=== PATIENT | male | born 1965 | race Hispanic/Latino ===

== ENCOUNTER 2016-10-12 18:24 | Emergency (ER) | payer SELFPAY ==
[2016-10-12] MEDS ORDERED: Sodium Chloride 0.9% 1,000 ML IV ONE (19:09)
[2016-10-12 19:34] LABS: BASO % 0.2 % (0.0-2.0); EOS # 0.2 K/uL (0.0-0.7); EOS % 1.4 % (0.0-4.0); HEMATOCRIT 48.8 % (35.0-51.0); LYMPH # 4.2 K/uL (1.0-4.3); LYMPH % 26.3 % (20.0-40.0); MEAN CELL VOLUME 96.5 fL (80.0-94.0); MEAN CORPUSCULAR HEMOGLOBIN 32.2 pg (27.0-31.0); MEAN CORPUSCULAR HGB CONC 33.4 g/dL (33.0-37.0); MEAN PLATELET VOLUME 8.2 fL (7.2-11.7); MONO # 1.3 K/uL (0.0-0.8); MONO % 8.3 % (0.0-10.0); RED CELL DISTRIBUTION WIDTH 13.6 % (11.5-14.5); WHITE BLOOD COUNT 15.9 K/uL (4.8-10.8)
[2016-10-12 19:45] LABS: CHLORIDE 96 mmol/L (98-107)
[2016-10-12 19:46] LABS: POTASSIUM 3.4 mmol/L (3.6-5.2); SODIUM 140 mmol/L (132-148)
[2016-10-12 19:48] LABS: ALB/GLOB RATIO 1.3 (1.0-2.1); AST/SGOT 31 U/L (17-59); BILIRUBIN,TOTAL 0.3 mg/dL (0.2-1.3); CARBON DIOXIDE 29 mmol/L (22-30); GFR AFRICAN-AMERICAN > 60; TOTAL PROTEIN 8.1 g/dL (6.3-8.3)
[2016-10-12 19:49] LABS: ALCOHOL SERUM < 10 mg/dl (0-10); ALKALINE PHOSPHATASE 102 U/L (38-126); ALT/SGPT 40 U/L (21-72); BLOOD UREA NITROGEN 13 mg/dL (9-20); CALCIUM 9.1 mg/dl (8.6-10.4); GLUCOSE,RANDOM 180 mg/dL (75-110)
[2016-10-12 20:37] LABS: RBC URINE 1 /hpf (0-3); URINE BILIRUBIN NEGATIVE (NEGATIVE); URINE BLOOD NEGATIVE (NEGATIVE); URINE COLOR Yellow (YELLOW); URINE GLUCOSE (UA) NORMAL (Normal); URINE HYALINE CAST 0-2 /lpf (0-2); URINE KETONE NEGATIVE (NEGATIVE); URINE LEUKOCYTE ESTERASE NEG Leu/uL (Negative); URINE PROTEIN NEGATIVE (NEGATIVE); URINE UROBILINOGEN NORMAL mg/dL (0.2-1.0); WBC URINE 2 /hpf (0-5)
--- NOTE | 2016-10-12 20:40 | C.PDOC ---
History Of Present Illness 50 y/o male presents to the ED s/p seizure. Pt was standing in his kitchen, his roommate came in and started talk to him and patient wasn't responding, began shaking, sweating, drooling with urinary incontinence. EMS was called. Pt arrived to ED in postictal state, confused and groggy. Pt admits to drinking today; pt admits to drinking and using drugs "occasionally." Time Seen by Provider: 10/12/16 19:00 Chief Complaint (Nursing): Seizure History Per: Patient History/Exam Limitations: no limitations Number Of Seizures: One Associated Symptoms: Incontinence Of Urine Post-ictal Period: Yes Severity: Mild Recent travel outside of the [place]: No Past Medical History Reviewed: Historical Data, Nursing Documentation, Vital Signs Vital Signs: Last Vital Signs Temp 98.1 F 10/12/16 20:57 Pulse 90 10/12/16 21:27 Resp 18 10/12/16 21:27 BP 135/90 10/12/16 21:27 Pulse Ox 94 L 10/12/16 21:27 - Medical History PMH: HTN, Chronic Pain Family History: States: Unknown Family Hx - Social History Hx Alcohol Use: Yes Hx Substance Use: Yes Review Of Systems Except As Marked, All Systems Reviewed And Found Negative. Genitourinary: Positive for: Incontinence (urinary) Neurological: Positive for: Confusion, Seizures Physical Exam - Physical Exam Appears: Non-toxic, No Acute Distress Skin: Warm, Dry, No Rash Head: Atraumatic, Normacephalic Nose: Normal Oral Mucosa: Moist Tongue: Normal Appearing, No Bite Lips: Normal Appearing Throat: Normal Neck: Normal ROM, Supple Chest: Symmetrical Cardiovascular: Rhythm Regular Respiratory: Normal Breath Sounds, No Rales, No Rhonchi, No Wheezing Gastrointestinal/Abdominal: Soft Extremity: Normal ROM Extremity: Bilateral: Atraumatic Neurological/Psych: Oriented x3, Normal Speech, Normal Cognition, Normal Motor, Normal Sensation ED Course And Treatment - Laboratory Results Result Diagrams: 10/12/16 19:29 10/12/16 19:29 Lab Interpretation: Abnormal Interpretation Of Abnormal: WBC elevated. ETOH negative, UDS + opiates, cocaine and marijuana. O2 Sat by Pulse Oximetry: 100 ()2) Pulse Ox Interpretation: Normal Progress Note: Plan: EKG, UDS, IV fluids, BGL. 9:40 Patient eloped from ED. Disposition - Disposition Disposition: ELOPEMENT - ER ONLY Disposition Time: 22:02 Condition: STABLE - Clinical Impression Clinical Impression: Seizure, Polysubstance abuse - Scribe Statement The provider has reviewed the documentation as recorded by the Scribadonis Colon Provider Attestation: All medical record entries made by the Scribe were at my direction and personally dictated by me. I have reviewed the chart and agree that the record accurately reflects my personal performance of the history, physical exam, medical decision making, and the department course for this patient. I have also personally directed, reviewed, and agree with the discharge instructions and disposition.
[2016-10-12 20:59] VITALS: TEMP 98.1
[2016-10-12 21:28] VITALS: BP 135/90; PULSE 90; RESP 18
[2016-10-12 22:03] VITALS: O2SAT 100
--- NOTE | 2016-10-13 16:05 | CARD ---
APPROVED REPORT EKG Measurement Heart [id number] <Conclusion> Poor data quality, interpretation may be adversely affected Sinus tachycardia Left axis deviation Abnormal ECG
== END 2016-10-12 21:34 | disposition left against medical advice (07) ==
LOC: C.ER 18:24
DX: R56.9 Unspecified convulsions (principal); F19.10 Other psychoactive substance abuse, uncomplicated
CPT/HCPCS: 80053; 81001; 82948; 85025; 93005; 96360; 99285; G0480; J7040